=== PATIENT | male | born 1955 | race Caucasian/White ===

== ENCOUNTER 2018-09-11 18:25 | Inpatient (IN) | payer OTHER ==
[~2018-09-11] VITALS: Ht 185.4 cm; Wt 137.6 kg
[~2018-09-11 18:25] MED LIST: AMLO5TAB7 PO; ASPI-630 PO; CLOP75TA PO; DOXA1TAB2 PO; FISH1CAP PO; HYDR25TA9 PO; ISOS30TA4 PO; LANS15CA78 PO; LEVO5TAB2 PO; METO50TA6 PO; SIMV20TA3 PO
[2018-09-11 19:10] LABS: BASO # 0.1 x10^3/uL (0.0-0.2); BASO % 1 % (0-3); EOS # 0.2 x10^3/uL (0.0-0.7); EOS % 3 % (0-3); HEMATOCRIT 41.8 % (39.0-53.0); LYMPH % 23 % (24-48); MEAN CORPUSCULAR HEMOGLOBIN 29 pg (25-35); MEAN CORPUSCULAR HGB CONC 34 g/dL (31-37); MEAN CORPUSCULAR VOLUME 88 fL (79-100); MONO # 0.6 x10^3/uL (0.0-1.1); MONO % 7 % (0-9); NEUT # 5.9 x10^3uL (1.8-7.7); NEUT % 67 % (31-73); PLATELET COUNT 247 x10^3/uL (140-400); RED BLOOD COUNT 4.78 x10^6/uL (4.30-5.70); RED CELL DISTRIBUTION WIDTH 15.8 % (11.5-14.5); WHITE BLOOD COUNT 8.9 x10^3/uL (4.0-11.0)
[2018-09-11 19:24] LABS: PROTHROMBIN TIME PATIENT 12.8 SEC (11.7-14.0)
--- NOTE | 2018-09-11 19:28 | EKG ---
[facility] [address] [place] [address] Test Date: 2018-09-11 Test Time: 19:17:05 Pat Name: EBENEZER JOHNSON Department: Room: Gender: M Conservation Specialist: : 1955 Requested By: MENDEZ ZAMORA Order Number: [id number] Reading MD: Stef Blank MD Measurements Intervals [place] Rate: 73 P: 51 ID: 160 QRS: 3 QRSD: 88 T: 52 QT: 410 QTc: 456 Interpretive Statements SINUS RHYTHM Electronically Signed On 09-13-2018 10:27:18 TAP GRINDER by Stef Blank MD
[2018-09-11 19:32] LABS: CALCIUM 8.3 mg/dL (8.5-10.1); CREATININE 1.5 mg/dL (0.7-1.3); GFR 47.4; POTASSIUM 3.7 mmol/L (3.5-5.1)
[2018-09-11 19:38] LABS: ALBUMIN 3.5 g/dL (3.4-5.0); DIRECT BILIRUBIN 0.1 mg/dL (0.0-0.2); MAGNESIUM 1.7 mg/dL (1.8-2.4); TOTAL BILIRUBIN 0.3 mg/dL (0.2-1.0)
[2018-09-11 19:55] LABS: BILIRUBIN,URINE NEGATIVE (NEG); CLARITY,URINE CLEAR; COLOR,URINE YELLOW; NITRITE,URINE NEGATIVE (NEG); PH,URINE 6.5; PROTEIN,URINE NEGATIVE (NEG-TRACE); UROBILINOGEN,URINE 0.2 mg/dL (0.2 mg/dL)
[2018-09-11 20:10] LABS: BACTERIA,URINE 0 /HPF (0-FEW); WBC,URINE 0 /HPF (0-4)
--- NOTE | 2018-09-11 20:36 | RAD ---
CT Head without contrast 09/11/2018 Clinical Indication: Slurred speech Comparison: None Technique: Multiple CT images of the head were obtained without contrast. *One or more of the following individualized dose reduction techniques were utilized for this examination: 1. Automated exposure control. 2. Adjustment of the mA and/or kV according to patient size. 3. Use of iterative reconstruction technique. Findings: Ventricles and subarachnoid spaces are normal in size and configuration for age. No acute intracranial hemorrhage or extra-axial fluid collection. The marin-white matter interfaces are maintained. No midline shift. The basal cisterns are patent. Mild ethmoid and maxillary sinus with dorsal thickening. Soft tissue density in the left external auditory canal. Impression: 1. No acute intracranial hemorrhage. 2. Soft tissue density in the left external auditory canal, may be cerumen. Electronically signed by: Wander Aaron MD (09/11/2018 8:32 PM) [facility]
[2018-09-11] MEDS ORDERED: ONDANSETRON PF 4 MG/2 ML VIAL. IV PRN (21:15)
--- NOTE | 2018-09-11 21:15 | PHYS DOC ---
Past Medical History Past Medical History: Hypertension, Kidney Stone, Other Additional Past Medical Histor: ARTERIAL BLOOD CLOT RIGHT LEG Past Surgical History: Angioplasty, Cholecystectomy, Other Additional Past Surgical Histo: WITH STENT PLACEMENT, KIDNEY STONE REMOVAL Alcohol Use: None Drug Use: None Adult General Chief Complaint Chief Complaint: NEURO SYMPTOMS/DEFICITS HPI HPI Patient is a 63 year old male who presents with slurred speech and difficulty getting words out. This started approximately 10:30 this morning while he was speaking in front of shirt should. thought that it his left side of the mouth was going downwards and that he was speaking more with a lisp, just not clear. At that time she noted normal velocity in the appropriate words. This seems to have improved for a little bit then later on during the day had difficulty getting the words out, seeking for words in choosing different words than he ordinarily would but still appropriate ones. Says he still feels like he is having difficulty with the clarity of his speech. Denies any headaches or difficulties seeing. Denies any weakness or numbness in his arms or legs. No nausea or vomiting. Patient reports that she forgot to take his blood pressure medicines along with his other medicines today.[] Review of Systems Review of Systems Constitutional: Denies fever or chills [] Eyes: Denies change in visual acuity, redness, or eye pain [] HENT: Denies nasal congestion or sore throat [] Respiratory: Denies cough or shortness of breath [] Cardiovascular: No chest pain or palpitations[] GI: Denies abdominal pain, nausea, vomiting, bloody stools or diarrhea [] : Denies dysuria or hematuria [] Musculoskeletal: Denies back pain or joint pain [] Integument: Denies rash or skin lesions [] Neurologic: Denies headache, focal weakness or sensory changes not documented in the history of present illness [] Endocrine: Denies polyuria or polydipsia [] All other systems were reviewed and found to be within normal limits, except as documented in this note. Allergies Allergies Allergies Coded Allergies Type Severity Reaction Last Updated Verified Cinnamon Allergy Unknown 05/21/14 Yes Shackelford And Derivatives Allergy Unknown 05/21/14 Yes chocolate flavor Allergy Unknown 05/21/14 Yes milk Allergy Unknown 05/21/14 Yes Sulfa (Sulfonamide Antibiotics) Adverse Reaction Unknown Nausea and Vomiting Yes lisinopril Adverse Reaction Unknown Swelling 07/27/14 Yes Uncoded Allergies Type Severity Reaction Last Updated Verified CAT HAIR Allergy Unknown 05/21/14 MOLD Allergy Unknown 05/21/14 Physical Exam Physical Exam Constitutional: Well developed, well nourished, no acute distress, non-toxic appearance. [] HENT: Normocephalic, atraumatic, bilateral external ears normal, oropharynx moist, no oral exudates, nose normal. [] Eyes: PERRLA, EOMI, conjunctiva normal, no discharge. [] Neck: Normal range of motion, no tenderness, supple, no stridor. [] Cardiovascular:Heart rate regular rhythm, no murmur [] Lungs & Thorax: Bilateral breath sounds clear to auscultation [] Abdomen: Bowel sounds normal, soft, no tenderness, no masses, no pulsatile masses. [] Skin: Warm, dry, no erythema, no rash. [] Back: No tenderness, no CVA tenderness. [] Extremities: No tenderness, no cyanosis, no clubbing, ROM intact, no edema. [] Neurologic: Alert and oriented X 3, cranial nerve VII on the right side seems to be weak, patient has normal smile but it is losing air with puffed out cheeks on the right side. NIH of 1 for this finding. Normal sensory function, no focal deficits noted. [] Psychologic: Affect normal, judgement normal, mood normal. [] Current Patient Data Vital Signs Vital Signs Date Time Temp Pulse Resp B/P (MAP) Pulse Ox O2 Delivery O2 Flow Rate FiO2 09/11/18 19:30 73 16 97 09/11/18 18:40 97.7 212/91 (131) Room Air 97.7 Lab Values Laboratory Tests Test 09/11/18 18:44 09/11/18 18:55 09/11/18 19:45 Glucose (Fingerstick) 90 mg/dL (70-99) White Blood Count 8.9 x10^3/uL (4.0-11.0) Red Blood Count 4.78 x10^6/uL (4.30-5.70) Hemoglobin 14.0 g/dL (13.0-17.5) Hematocrit 41.8 % (39.0-53.0) Mean Corpuscular Volume 88 fL (79-100) Mean Corpuscular Hemoglobin 29 pg (25-35) Mean Corpuscular Hemoglobin Concent 34 g/dL (31-37) Red Cell Distribution Width 15.8 % (11.5-14.5) H Platelet Count 247 x10^3/uL (140-400) Neutrophils (%) (Auto) 67 % (31-73) Lymphocytes (%) (Auto) 23 % (24-48) L Monocytes (%) (Auto) 7 % (0-9) Eosinophils (%) (Auto) 3 % (0-3) Basophils (%) (Auto) 1 % (0-3) Neutrophils # (Auto) 5.9 x10^3uL (1.8-7.7) Lymphocytes # (Auto) 2.0 x10^3/uL (1.0-4.8) Monocytes # (Auto) 0.6 x10^3/uL (0.0-1.1) Eosinophils # (Auto) 0.2 x10^3/uL (0.0-0.7) Basophils # (Auto) 0.1 x10^3/uL (0.0-0.2) Prothrombin Time 12.8 SEC (11.7-14.0) Prothrombin Time INR 1.0 (0.8-1.1) Sodium Level 143 mmol/L (136-145) Potassium Level 3.7 mmol/L (3.5-5.1) Chloride Level 106 mmol/L (98-107) Carbon Dioxide Level 26 mmol/L (21-32) Anion Gap 11 (6-14) Blood Urea Nitrogen 16 mg/dL (8-26) Creatinine 1.5 mg/dL (0.7-1.3) H Estimated GFR (Cockcroft-Gault) 47.4 BUN/Creatinine Ratio 11 (6-20) Glucose Level 107 mg/dL (70-99) H Calcium Level 8.3 mg/dL (8.5-10.1) L Magnesium Level 1.7 mg/dL (1.8-2.4) L Total Bilirubin 0.3 mg/dL (0.2-1.0) Direct Bilirubin 0.1 mg/dL (0.0-0.2) Aspartate Amino Transferase (AST) 11 U/L (15-37) L Alanine Aminotransferase (ALT) 24 U/L (16-63) Alkaline Phosphatase 90 U/L (46-116) Ammonia 22 mcmol/L (11-34) Creatine Kinase 104 U/L (39-308) Troponin I Quantitative < 0.017 ng/mL (0.000-0.055) OD-Lyd-I-Type Natriuretic Peptide 229 pg/mL (0-124) H Total Protein 7.0 g/dL (6.4-8.2) Albumin 3.5 g/dL (3.4-5.0) Albumin/Globulin Ratio 1.0 (1.0-1.7) Urine Collection Type Unknown Urine Color Yellow Urine Clarity Clear Urine pH 6.5 Urine Specific [place] 1.015 Urine Protein Negative mg/dL (NEG-TRACE) Urine Glucose (UA) Negative mg/dL (NEG) Urine Ketones (Stick) Negative mg/dL (NEG) Urine Blood Small (NEG) Urine Nitrite Negative (NEG) Urine Bilirubin Negative (NEG) Urine Urobilinogen Dipstick 0.2 mg/dL (0.2 mg/dL) Urine Leukocyte Esterase Negative (NEG) Urine RBC 11-20 /HPF (0-2) Urine WBC 0 /HPF (0-4) Urine Bacteria 0 /HPF (0-FEW) Urine Mucus Slight /LPF Laboratory Tests 09/11/18 18:55 Laboratory Tests 09/11/18 18:55 EKG EKG Initial EKG was read by the computer as atrial flutter however this seemed to be regular in is not fenced of that so repeat EKG was obtained that showed normal sinus rhythm and no ST elevations and no EKGs available prior to today. The QRS axis was normal, QTc was 456 ms[] Radiology/Procedures Radiology/Procedures CT scan of the head shows no acute features Chest x-ray showed no acute features[] Course & Med Decision Making Course & Med Decision Making Pertinent Labs and Imaging studies reviewed. (See chart for details) Medical decision making: There does not appear to be a hemorrhagic stroke, nor significant stroke. Given history of previous DVT, patient already on clopidogrel, concern for small clots affecting different areas of the brain also exists given the left-sided symptoms observed by patient's versus right-sided symptoms observed by me. This also may be a blood pressure issue given that patient's blood pressure was in the 200s when he arrived due to poor compliance with his home medication. Consultation was made with his latex fashions designer who is happy to consult for cardiac issues, however patient having a primary care physician that has subsequently retired, patient is being admitted to the hospitalist service. ED course: Patient arrived, was placed in bed, in tolerate exam well. Patient was transported to and from [place] with any complications. Patient did take his home medication which improved his blood pressure from the 210s to 160s systolic. No significant change in his NIH stroke scale during his emergency department stay. Findings were discussed with patient and family. All questions were answered. Patient was admitted in improved condition.[] Dragon Disclaimer Dragon Disclaimer This electronic medical record was generated, in whole or in part, using a voice recognition dictation system. Departure Departure Impression: Primary Impression: Stroke Additional Impression: Hypertension Disposition: ADMITTED INPATIENT Admitting Physician: Xie. Rivas Condition: STABLE Referrals: NO PCP (PCP) Problem Qualifiers Primary Impression: Stroke CVA mechanism: unspecified Qualified Codes: I63.9 - Cerebral infarction, unspecified Additional Impression: Hypertension Hypertension type: unspecified Qualified Codes: I10 - Essential (primary) hypertension MENDEZ ZAMORA DO Sep 11, 2018 21:15
[2018-09-11] MEDS ORDERED: ASPIRIN CHEWABLE 81 MG TABLET. PO ONE (21:30)
[2018-09-11] MEDS ORDERED: GUAI12003 PO (22:51)
[2018-09-11] MEDS ORDERED: LOSA50TA7 PO (22:51)
[2018-09-11] MEDS ORDERED: [UNRECOGNIZED DRUG - OTHER] (22:51)
[2018-09-11 22:58] VITALS: BP 167/94
--- NOTE | 2018-09-11 23:50 | RAD ---
Examination: PORTABLE CHEST 1V History: slurred speech Comparison/Correlation: None Findings: Portable upright frontal view of the chest was obtained. Heart size is normal. No pneumothorax. Pulmonary hyperinflation suggested. Opacification of the left lower thorax is probably artifactual and due to overlying soft tissues. No definite effusion. Impression: No definite infiltrate. Consider lateral view for more definitive assessment lung bases. Pulmonary hyperinflation appears to present and may represent COPD. Electronically signed by: Sp Sales MD (09/11/2018 11:47 PM) [place] [id number]
[2018-09-12 03:00] VITALS: BP 132/58
[2018-09-12 07:00] VITALS: BP 163/76
--- NOTE | 2018-09-12 07:19 | EKG ---
[facility] [address] [place] [address] Test Date: 2018-09-11 Test Time: 18:48:27 Pat Name: EBENEZER JOHNSON Department: Room: 674 1 Gender: Male Internist Medical Doctor Md: : 1955 Requested By: MENDEZ ZAMORA Order Number: [id number] Reading MD: Stef Blank MD Measurements Intervals [place] Rate: 70 P: RI: QRS: 13 QRSD: 90 T: 164 QT: 494 QTc: 537 Interpretive Statements PROBABLE SR BASELINE ARTIFACT NON-SPECIFIC ST/T CHANGES Electronically Signed On 09-13-2018 10:27:03 [facility] by Stef Blank MD
[2018-09-12 08:21] LABS: BASO # 0.1 x10^3/uL (0.0-0.2); BASO % 1 % (0-3); EOS # 0.2 x10^3/uL (0.0-0.7); EOS % 4 % (0-3); HEMATOCRIT 41.9 % (39.0-53.0); LYMPH # 1.6 x10^3/uL (1.0-4.8); LYMPH % 26 % (24-48); MEAN CORPUSCULAR HEMOGLOBIN 29 pg (25-35); MEAN CORPUSCULAR HGB CONC 33 g/dL (31-37); MEAN CORPUSCULAR VOLUME 87 fL (79-100); MONO # 0.5 x10^3/uL (0.0-1.1); MONO % 8 % (0-9); NEUT # 3.8 x10^3uL (1.8-7.7); NEUT % 62 % (31-73); PLATELET COUNT 207 x10^3/uL (140-400); RED CELL DISTRIBUTION WIDTH 15.8 % (11.5-14.5); WHITE BLOOD COUNT 6.2 x10^3/uL (4.0-11.0)
[2018-09-12 08:26] LABS: CALCIUM 8.2 mg/dL (8.5-10.1); CREATININE 1.3 mg/dL (0.7-1.3); GFR 55.9; POTASSIUM 3.6 mmol/L (3.5-5.1)
[2018-09-12] MEDS ORDERED: ACETAMINOPHEN 500 MG TABLET PO PRN (10:15)
[2018-09-12 11:00] VITALS: BP 117/52
--- NOTE | 2018-09-12 11:26 | SSS ---
ADMIT DATE: 09/12/2018 CHIEF COMPLAINT: Right facial droop and drooling. 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 Basically, he presented with right facial droop, his forehead is not wrinkling and his eyes are a little droopy. He has been drooling. Clinically, he seems to have a Ch's palsy, although we are not sure; he could have had a stroke as well. This has been occurring since Wednesday when he realized he could not whistle. He tried taking some home meds, but that did not work. He rates it a 7 out of 10. I have discussed the case with the ER physician. We are going to be admitting the patient. We are going to be consulting Neurology to make sure he did not have a true stroke, but I suspect this is probably a Ch's palsy. PAST MEDICAL HISTORY: Hypertension, kidney stones, DVT, cholecystectomy and cardiac stents. ALLERGIES: CITRUS, SULFA, CAT DANDER, CHOCOLATE, CINNAMON, LISINOPRIL, MILK AND MOLD. FAMILY HISTORY: Hypertension. SOCIAL HISTORY: He is . He does not drink, smoke or take drugs. 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 MEDICATIONS: Medications were reviewed, please refer to the MRAD. He is on 14 home medications, including Plavix, simvastatin, isosorbide, doxazosin, metoprolol, amlodipine, losartan, aspirin, hydrochlorothiazide, guaifenesin, Prevacid and fish oil. REVIEW OF SYSTEMS: GENERAL: No history of weight change, weakness or fevers. SKIN: No bruising, hair changes or rashes. EYES: No blurred, double or loss of vision. NOSE AND THROAT: No history of nosebleeds, hoarseness or sore throat. HEART: No history of palpitations, chest pain or shortness of breath on exertion. LUNGS: Denies cough, hemoptysis, wheezing or shortness of breath. GASTROINTESTINAL: Denies changes in appetite, nausea, vomiting, diarrhea or constipation. GENITOURINARY: No history of frequency, urgency, hesitancy or nocturia. NEUROLOGIC: Denies history of numbness, tingling, tremor or weakness. He complains of right facial droop. PSYCHIATRIC: No history of panic, anxiety or depression. ENDOCRINE: No history of heat or cold intolerance, polyuria or polydipsia. EXTREMITIES: Denies muscle weakness, joint pain, pain on walking or stiffness. PHYSICAL EXAMINATION: VITAL SIGNS: Temperature afebrile, pulse 82, respirations 18 and blood pressure 160/74. GENERAL: He is alert, cooperative. His and daughter are present and are good support for him. HEART: Normal S1, S2. LUNGS: Clear to auscultation. ABDOMEN: Soft. Positive bowel sounds, a little obese. EXTREMITIES: Trace edema. SKIN: No rash. ENDOCRINE: No thyromegaly. LYMPHATICS: No cervical nodes. HEMATOPOIETIC: No bruising. NEUROLOGIC: He is moving all extremities. He does have a right facial droop. The right forehead does not wrinkle well. LABORATORY DATA: Hematology is normal. Electrolytes were normal. CT of the head is negative. ASSESSMENT AND PLAN: Stroke versus Ch's palsy. The patient has been admitted. We are consulting Neurology, suspect he will get an MRI. For now, we are doing daily aspirin, speech therapy, home meds, PT, OT and frequent labs. WINSOME BARRIGA DO DR: JULIAN/shirley JOB#: [id number] / [id number]
[2018-09-12] MEDS ORDERED: ACETAMINOPHEN 325 MG TABLET. PO PRN (11:30)
[2018-09-12] MEDS ORDERED: ACETAMINOPHEN 650 MG SUPP.RECT. PR PRN (11:30)
--- NOTE | 2018-09-12 11:36 | PDOC2 ---
NEUROLOGY CONSULT Date of Admission Date of Admission DATE: 09/12/18 TIME: 11:29 Reason for Consult Reason for Consult: Possible stroke Referring Physician Referring Physician: Dr. Gabriel Source Source: Caregiver, Chart review, Patient History of Present Illness History of Present Illness The patient is a 63-year-old right-handed male who 2 nights ago noted the onset of dysarthria. He also noted that he could not whistle for his dog. The next morning the symptoms continued and he finally went to the emergency department last night. He has had some achy pain behind the right ear. There is been no change in hearing or taste. He says that his right eye is watering a lot. He denies any previous such stroke symptoms. There is no history of migraine, seizure, or head injury. 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 Current Medications Current Medications Current Medications Aspirin (Children'S Aspirin) 324 mg 1X ONCE PO Last administered on at 21:31; Admin Dose 324 MG; Start 09/11/18 at 21:30; Stop 09/11/18 at 21:31 ; Status DC Ondansetron HCl (Zofran) 4 mg PRN Q8HRS PRN IV NAUSEA/VOMITING 1ST CHOICE; Start 09/11/18 at 21:15; Stop 09/12/18 at 21:14 Influenza Virus Vaccine (Afluria Trivalent [id number] Syringe) 0.5 ml ONCE ONCE VAX IM ; Start 09/12/18 at 09:00; Stop 09/12/18 at 09:01; Status DC Acetaminophen (Tylenol) 1,000 mg PRN Q6HRS PRN PO HEADACHE Last administered on 09/12/18at 10:26; Admin Dose 1,000 MG; Start 09/12/18 at 10:15 Active Scripts Active Reported Mucinex (Guaifenesin) 1,200 Mg Tbmp.12hr 1,200 Mg PO PRN PRN [mon] Losartan Potassium 50 Mg Tablet 50 Mg PO DAILY Isosorbide Mononitrate Er (Isosorbide Mononitrate) 30 Mg Tab.er.24h 30 Mg PO DAILY Levocetirizine Dihydrochloride 5 Mg Tablet 5 Mg PO DAILY Simvastatin 20 Mg Tablet 20 Mg PO HS Clopidogrel (Clopidogrel Bisulfate) 75 Mg Tablet 75 Mg PO DAILY Amlodipine Besylate 5 Mg Tablet 5 Mg PO DAILY Doxazosin Mesylate 1 Mg Tablet 1 Mg PO DAILY Metoprolol Tartrate 50 Mg Tablet 50 Mg PO BID Hydrochlorothiazide Tablet (Hydrochlorothiazide) 25 Mg Tablet 25 Mg PO DAILY Aspirin 81 Mg Tab.chew 81 Mg PO DAILY Fish Oil 1,200 Mg Fish Oil (Fish Oil/Dha/Epa) 1 Each Capsule 1 Each PO DAILY Prevacid (Lansoprazole) 15 Mg Capsule.dr 15 Mg PO DAILY Allergies Allergies: Coded Allergies: [place] And Derivatives (Verified Allergy, Intermediate, 09/11/18) cat dander (Verified Allergy, Intermediate, 09/11/18) chocolate flavor (Verified Allergy, Intermediate, 09/11/18) cinnamon (Verified Allergy, Intermediate, 09/11/18) milk (Verified Allergy, Intermediate, 09/11/18) mold (Verified Allergy, Intermediate, 09/11/18) lisinopril (Verified Adverse Reaction, Severe, Swelling, 09/11/18) Sulfa (Sulfonamide Antibiotics) (Verified Adverse Reaction, Intermediate, Nausea and Vomiting, 09/11/18) ROS Review of System Patient denies fevers, chills, weight loss, dyspnea, angina, abdominal pain, change in bowels, or dysuria. 14-point review of systems is negative. Physical Exam Physical Examination General: Well-developed, well-nourished, white male, in no acute distress HEENT: Normocephalic andatraumatic. Tympanic membranes clear.Temporal arteries pulsatile and nontender. Neck: Supple without bruit, no meningismus Musculoskeletal: Stability:see neurologic. Gait exam:see neurologic. Tone:see neurologic. Strength:see neurologic. Neurological: Mental Status:intact, orientation, memory, attention span/concentration, language, fund of knowledge normal. Cranial Nerves:Pupils equal and reactive to light, extraocular movements areintact, visual cast are full to confrontation. Facial sensation is normal. There is right lower facial weakness , no involvement of orbicularis oculi or frontalis. Vestibulo-ocular reflex is intact. Palate elvates and tongue protrudes in midline. All other cranial related problems are negative except as mentioned before.Reflexes:2+ and symmetric with flexor plantar responses. Motor:5/5 strength with normal tone and bulk. Coordination:Finger-nose finger and opjq-hj-oizr testing are normal. Rapid alternating movements and fine finger movements are intact. Gait:Normal, including tandem. Sensory:Normal pinprick, vibration, light touch, proprioception. Vitals VITALS Vital Signs Date Time Temp Pulse Resp B/P (MAP) Pulse Ox O2 Delivery O2 Flow Rate FiO2 09/12/18 07:00 97.9 60 18 163/76 (105) 99 Room Air 97.9 Labs Labs Laboratory Tests Test 09/11/18 18:44 09/11/18 18:55 09/11/18 19:45 09/12/18 07:50 Glucose (Fingerstick) 90 mg/dL (70-99) White Blood Count 8.9 x10^3/uL (4.0-11.0) 6.2 x10^3/uL (4.0-11.0) Red Blood Count 4.78 x10^6/uL (4.30-5.70) 4.80 x10^6/uL (4.30-5.70) Hemoglobin 14.0 g/dL (13.0-17.5) 14.0 g/dL (13.0-17.5) Hematocrit 41.8 % (39.0-53.0) 41.9 % (39.0-53.0) Mean Corpuscular Volume 88 fL (79-100) 87 fL (79-100) Mean Corpuscular Hemoglobin 29 pg (25-35) 29 pg (25-35) Mean Corpuscular Hemoglobin Concent 34 g/dL (31-37) 33 g/dL (31-37) Red Cell Distribution Width 15.8 % (11.5-14.5) 15.8 % (11.5-14.5) Platelet Count 247 x10^3/uL (140-400) 207 x10^3/uL (140-400) Neutrophils (%) (Auto) 67 % (31-73) 62 % (31-73) Lymphocytes (%) (Auto) 23 % (24-48) 26 % (24-48) Monocytes (%) (Auto) 7 % (0-9) 8 % (0-9) Eosinophils (%) (Auto) 3 % (0-3) 4 % (0-3) Basophils (%) (Auto) 1 % (0-3) 1 % (0-3) Neutrophils # (Auto) 5.9 x10^3uL (1.8-7.7) 3.8 x10^3uL (1.8-7.7) Lymphocytes # (Auto) 2.0 x10^3/uL (1.0-4.8) 1.6 x10^3/uL (1.0-4.8) Monocytes # (Auto) 0.6 x10^3/uL (0.0-1.1) 0.5 x10^3/uL (0.0-1.1) Eosinophils # (Auto) 0.2 x10^3/uL (0.0-0.7) 0.2 x10^3/uL (0.0-0.7) Basophils # (Auto) 0.1 x10^3/uL (0.0-0.2) 0.1 x10^3/uL (0.0-0.2) Prothrombin Time 12.8 SEC (11.7-14.0) Prothromb Time International Ratio 1.0 (0.8-1.1) Sodium Level 143 mmol/L (136-145) 142 mmol/L (136-145) Potassium Level 3.7 mmol/L (3.5-5.1) 3.6 mmol/L (3.5-5.1) Chloride Level 106 mmol/L (98-107) 105 mmol/L (98-107) Carbon Dioxide Level 26 mmol/L (21-32) 31 mmol/L (21-32) Anion Gap 11 (6-14) 6 (6-14) Blood Urea Nitrogen 16 mg/dL (8-26) 13 mg/dL (8-26) Creatinine 1.5 mg/dL (0.7-1.3) 1.3 mg/dL (0.7-1.3) Estimated GFR (Cockcroft-Gault) 47.4 55.9 BUN/Creatinine Ratio 11 (6-20) Glucose Level 107 mg/dL (70-99) 100 mg/dL (70-99) Calcium Level 8.3 mg/dL (8.5-10.1) 8.2 mg/dL (8.5-10.1) Magnesium Level 1.7 mg/dL (1.8-2.4) Total Bilirubin 0.3 mg/dL (0.2-1.0) Direct Bilirubin 0.1 mg/dL (0.0-0.2) Aspartate Amino Transf (AST/SGOT) 11 U/L (15-37) Alanine Aminotransferase (ALT/SGPT) 24 U/L (16-63) Alkaline Phosphatase 90 U/L (46-116) Ammonia 22 mcmol/L (11-34) Creatine Kinase 104 U/L (39-308) Troponin I Quantitative < 0.017 ng/mL (0.000-0.055) QG-Jyl-Y-Type Natriuretic Peptide 229 pg/mL (0-124) Total Protein 7.0 g/dL (6.4-8.2) Albumin 3.5 g/dL (3.4-5.0) Albumin/Globulin Ratio 1.0 (1.0-1.7) Urine Collection Type Unknown Urine Color Yellow Urine Clarity Clear Urine pH 6.5 Urine Specific [place] 1.015 Urine Protein Negative mg/dL (NEG-TRACE) Urine Glucose (UA) Negative mg/dL (NEG) Urine Ketones (Stick) Negative mg/dL (NEG) Urine Blood Small (NEG) Urine Nitrite Negative (NEG) Urine Bilirubin Negative (NEG) Urine Urobilinogen Dipstick 0.2 mg/dL (0.2 mg/dL) Urine Leukocyte Esterase Negative (NEG) Urine RBC 11-20 /HPF (0-2) Urine WBC 0 /HPF (0-4) Urine Bacteria 0 /HPF (0-FEW) Urine Mucus Slight /LPF Laboratory Tests Test 09/11/18 18:44 09/11/18 18:55 09/11/18 19:45 09/12/18 07:50 Glucose (Fingerstick) 90 mg/dL (70-99) White Blood Count 8.9 x10^3/uL (4.0-11.0) 6.2 x10^3/uL (4.0-11.0) Red Blood Count 4.78 x10^6/uL (4.30-5.70) 4.80 x10^6/uL (4.30-5.70) Hemoglobin 14.0 g/dL (13.0-17.5) 14.0 g/dL (13.0-17.5) Hematocrit 41.8 % (39.0-53.0) 41.9 % (39.0-53.0) Mean Corpuscular Volume 88 fL (79-100) 87 fL (79-100) Mean Corpuscular Hemoglobin 29 pg (25-35) 29 pg (25-35) Mean Corpuscular Hemoglobin Concent 34 g/dL (31-37) 33 g/dL (31-37) Red Cell Distribution Width 15.8 % (11.5-14.5) 15.8 % (11.5-14.5) Platelet Count 247 x10^3/uL (140-400) 207 x10^3/uL (140-400) Neutrophils (%) (Auto) 67 % (31-73) 62 % (31-73) Lymphocytes (%) (Auto) 23 % (24-48) 26 % (24-48) Monocytes (%) (Auto) 7 % (0-9) 8 % (0-9) Eosinophils (%) (Auto) 3 % (0-3) 4 % (0-3) Basophils (%) (Auto) 1 % (0-3) 1 % (0-3) Neutrophils # (Auto) 5.9 x10^3uL (1.8-7.7) 3.8 x10^3uL (1.8-7.7) Lymphocytes # (Auto) 2.0 x10^3/uL (1.0-4.8) 1.6 x10^3/uL (1.0-4.8) Monocytes # (Auto) 0.6 x10^3/uL (0.0-1.1) 0.5 x10^3/uL (0.0-1.1) Eosinophils # (Auto) 0.2 x10^3/uL (0.0-0.7) 0.2 x10^3/uL (0.0-0.7) Basophils # (Auto) 0.1 x10^3/uL (0.0-0.2) 0.1 x10^3/uL (0.0-0.2) Prothrombin Time 12.8 SEC (11.7-14.0) Prothromb Time International Ratio 1.0 (0.8-1.1) Sodium Level 143 mmol/L (136-145) 142 mmol/L (136-145) Potassium Level 3.7 mmol/L (3.5-5.1) 3.6 mmol/L (3.5-5.1) Chloride Level 106 mmol/L (98-107) 105 mmol/L (98-107) Carbon Dioxide Level 26 mmol/L (21-32) 31 mmol/L (21-32) Anion Gap 11 (6-14) 6 (6-14) Blood Urea Nitrogen 16 mg/dL (8-26) 13 mg/dL (8-26) Creatinine 1.5 mg/dL (0.7-1.3) 1.3 mg/dL (0.7-1.3) Estimated GFR (Cockcroft-Gault) 47.4 55.9 BUN/Creatinine Ratio 11 (6-20) Glucose Level 107 mg/dL (70-99) 100 mg/dL (70-99) Calcium Level 8.3 mg/dL (8.5-10.1) 8.2 mg/dL (8.5-10.1) Magnesium Level 1.7 mg/dL (1.8-2.4) Total Bilirubin 0.3 mg/dL (0.2-1.0) Direct Bilirubin 0.1 mg/dL (0.0-0.2) Aspartate Amino Transf (AST/SGOT) 11 U/L (15-37) Alanine Aminotransferase (ALT/SGPT) 24 U/L (16-63) Alkaline Phosphatase 90 U/L (46-116) Ammonia 22 mcmol/L (11-34) Creatine Kinase 104 U/L (39-308) Troponin I Quantitative < 0.017 ng/mL (0.000-0.055) XY-Set-Q-Type Natriuretic Peptide 229 pg/mL (0-124) Total Protein 7.0 g/dL (6.4-8.2) Albumin 3.5 g/dL (3.4-5.0) Albumin/Globulin Ratio 1.0 (1.0-1.7) Urine Collection Type Unknown Urine Color Yellow Urine Clarity Clear Urine pH 6.5 Urine Specific [place] 1.015 Urine Protein Negative mg/dL (NEG-TRACE) Urine Glucose (UA) Negative mg/dL (NEG) Urine Ketones (Stick) Negative mg/dL (NEG) Urine Blood Small (NEG) Urine Nitrite Negative (NEG) Urine Bilirubin Negative (NEG) Urine Urobilinogen Dipstick 0.2 mg/dL (0.2 mg/dL) Urine Leukocyte Esterase Negative (NEG) Urine RBC 11-20 /HPF (0-2) Urine WBC 0 /HPF (0-4) Urine Bacteria 0 /HPF (0-FEW) Urine Mucus Slight /LPF Images Images CT head: Ventricles and subarachnoid spaces are normal in size and configuration for age. No acute intracranial hemorrhage or extra-axial fluid collection. The marin-white matter interfaces are maintained. No midline shift. The basal cisterns are patent. Mild ethmoid and maxillary sinus with dorsal thickening. Soft tissue density in the left external auditory canal. Impression: 1. No acute intracranial hemorrhage. 2. Soft tissue density in the left external auditory canal, may be cerumen. Assessment/Plan Assessment/Plan Impression: The facial weakness only involves the lower part of the face, which is unusual with Ch's palsy. On the other hand, he has fullness behind the ipsilateral ear and no other focal findings., I'm not sure if he has had a small stroke versus bells palsy. Note that he is already on aspirin, Plavix, and a statin. Recommendations: MRI of the brain Echocardiogram Carotid Doppler studies Rehabilitation screening Continue the aspirin, Plavix, and statin Course of prednisone, see orders, discussed side effects. Aim for discharge later today if tests are negative. Follow-up with me in 3-6 weeks unless the facial symptoms are cleared, and then there would be no need for neurological follow-up. Thank you for letting me help with the patient's care. GEO OKEEFE MD Sep 12, 2018 11:36
[2018-09-12] MEDS ORDERED: ASPIRIN CHEWABLE 81 MG TABLET. PO SCH ×2 (11:45→13:00)
[2018-09-12] MEDS ORDERED: CLOPIDOGREL BISULFATE 75 MG TABLET PO SCH ×2 (11:45→13:00)
[2018-09-12 12:07] LABS: CHOLESTEROL/HDL RATIO 4.5
[2018-09-12] MEDS ORDERED: amLODIPine BESYLATE 5 MG TABLET PO SCH (13:00)
[2018-09-12] MEDS ORDERED: METOPROLOL TART IMMED RELEASE 50 MG TABLET. PO SCH (13:00)
[2018-09-12] MEDS ORDERED: LOSARTAN POTASSIUM 50 MG TABLET. PO SCH ×2 (13:00→21:00)
[2018-09-12] MEDS ORDERED: DOXAZOSIN MESYLATE 1 MG TABLET. PO SCH ×2 (13:00→21:00)
[2018-09-12] MEDS ORDERED: LANSOPRAZOLE 30 MG TAB.RAP.DR PO SCH (13:00)
[2018-09-12] MEDS ORDERED: predniSONE 20 MG TABLET PO ONE (13:00)
[2018-09-12] MEDS ORDERED: OMEGA-3 FATTY ACIDS/FISH OIL 1,000 MG CAPSULE. PO SCH (13:00)
[2018-09-12] MEDS ORDERED: hydroCHLOROthiazide 25 MG TABLET PO SCH (13:00)
[2018-09-12] MEDS ORDERED: ISOSORBIDE MONONITRATE ER 30 MG TAB.ER.24H PO SCH (13:00)
--- NOTE | 2018-09-12 13:39 | RAD ---
MRI Brain without contrast History: Right-sided facial weakness, slurred speech Technique: Multiplanar, multisequential noncontrast MR imaging was performed of the brain. Contrast: None Comparison: None Findings: There is mild motion. There is no evidence of recent infarct or cytotoxic edema. Ventricular size is within normal limits.There is no significant midline shift, intraaxial mass effect, or focal abnormal extra-axial fluid collection. There are couple of tiny foci of T2 and FLAIR hyperintense signal of the bifrontal deep white matter. There is no significant hemosiderin deposition of the brain parenchyma. There is preservation of the major intracranial flow-voids at the skull base. There is very mild thickening of the right mastoid air cells.The cerebellar tonsils are normal in location. There is no significant abnormality of the pineal gland or pituitary gland. There is mild to moderate right and mild left maxillary sinus mucosal thickening. There is negligible ethmoid air cell and right frontal sinus mucosal thickening. There is preserved marrow signal of the clivus. Impression: 1. There is no evidence of recent infarct or intracranial mass effect. There are a couple of foci of likely nonspecific gliosis of the bifrontal deep white matter. 2. There is paranasal sinus mucosal thickening as described. Electronically signed by: Stew Markham MD (09/12/2018 1:36 PM) [id number]
--- NOTE | 2018-09-12 13:42 | RAD ---
DOPPLER CAROTID BILAT Clinical Indication: RT FACIAL WEAKNESS. Procedure: Pulsed wave and color-flow duplex imaging was utilized to evaluate the extracranial carotid arteries. Comparison: None. Findings: RIGHT SIDE: Mild atherosclerotic plaque on marin-scale images. Distal CCA peak systolic velocity 46 cm/sec. ICA peak systolic velocity 90 cm/sec. The right ICA/CCA ratio is 2.0. Flow within the right vertebral artery and right ECA is directed antegrade. LEFT SIDE: Mild atherosclerotic plaque on marin-scale images. Distal CCA peak systolic velocity 39 cm/sec. ICA peak systolic velocity 73 cm/sec. The left ICA/CCA ratio is 1.9. Delayed that Flow within the left vertebral artery and left ECA is directed antegrade. Carotid legend: CCA = common carotid artery ICA = internal carotid artery ECA = external carotid artery IMPRESSION: 1. Mild bilateral atherosclerotic disease in the carotid arteries without hemodynamically significant stenosis. Electronically signed by: Reji Blue DO (09/12/2018 1:39 PM) [id number]
[2018-09-12 15:00] VITALS: BP 118/68
[2018-09-12] MEDS ORDERED: SIMVASTATIN 20 MG TABLET PO SCH (21:00)
[2018-09-13] MEDS ORDERED: predniSONE 10 MG TABLET PO ONE (09:00)
--- NOTE | 2018-09-13 10:44 | CARD ---
MR#: [id number] Date of Study: 09/12/2018 Ordering Physician: GEO OKEEFE, Referring Physician: TIFF BRAY Tech: Meera Negron RDCS APPROVED REPORT EXAM: Two-dimensional and M-mode echocardiogram with Doppler and color Doppler. Other Information Quality : Technically Limited Technically limited study due to body habitus. INDICATION CVA/TIA Echo Enhancing Agent Agent/Amount Used: Agitated Saline 16mL 2D DIMENSIONS RVDd2.9 (2.9-3.5cm)Left Atrium(2D)3.2 (1.6-4.0cm) IVSd1.7 (0.7-1.1cm)Aortic Root(2D)2.9 (2.0-3.7cm) LVDd4.0 (3.9-5.9cm)LVOT Diameter2.2 (1.8-2.4cm) PWd1.3 (0.7-1.1cm)LVDs3.0 (2.5-4.0cm) FS (%) 26.9 %SV37.9 ml LVEF(%)55.0 (>50%) Aortic Valve AoV Peak Willi.204.2cm/sAoV VTI46.7cm AO Peak GR.16.7mmHgLVOT Peak Willi.86.8cm/s AO Mean GR.10mmHgAVA (VMAX)1.66cm2 PIERCE (VTI)1.80cm2 Mitral Valve MV E Yepxulpd10.9cm/sMV DECEL [id number] MV A Hrzlmzcd50.9cm/sE/A Ratio1.2 LEFT VENTRICLE The left ventricle is normal size. There is mild concentric left ventricular hypertrophy. The left ve ntricular systolic function is normal and the ejection fraction is within normal range. The Ejection Fraction is 55-60%. There is grossly normal LV wall motion. Tissue Doppler imaging reveals moderate l eft ventricular diastolic dysfunction. RIGHT VENTRICLE The right ventricle is normal size. The right ventricular systolic function is normal. ATRIA The left atrium size is normal. The right atrium size is normal. Atrial septum not well visualized. N on-diagnostic saline injection study. AORTIC VALVE The aortic valve is not well visualized but appears sclerotic. Cannot rule out a bicuspid valve. Dopp ler and Color Flow revealed no significant aortic regurgitation. Visually the aortic valve appears mo derately stenotic. By doppler criteria there is mild stenosis. MITRAL VALVE The mitral valve is normal in structure and function. There is no evidence of mitral valve prolapse. There is no mitral valve stenosis. Doppler and Color Flow revealed no mitral valve regurgitation note d. TRICUSPID VALVE The tricuspid valve is normal in structure and function. Doppler and Color Flow revealed no tricuspid valve regurgitation noted. There is no tricuspid valve stenosis. PULMONIC VALVE The pulmonic valve is not well visualized. Doppler and Color Flow revealed no pulmonic valvular regur gitation. There is no pulmonic valvular stenosis. GREAT VESSELS The aortic root is normal in size. The ascending aorta is normal in size. The IVC is normal in size a nd collapses >50% with inspiration. PERICARDIAL EFFUSION There is no evidence of significant pericardial effusion. Critical Notification Critical Value: No <Conclusion> The left ventricular systolic function is normal and the ejection fraction is within normal range. Th e Ejection Fraction is 55-60%. There is grossly normal LV wall motion. Atrial septum not well visualized. Non-diagnostic saline injection study. Visually the aortic valve appears moderately stenotic. By doppler criteria there is mild stenosis. Technically difficult study - recommend SUNNY if clinically indicated. Signed by : Stef Blank, Electronically Approved : 09/13/2018 10:44:02
[2018-09-14] MEDS ORDERED: predniSONE 20 MG TABLET PO ONE (09:00)
[2018-09-15] MEDS ORDERED: predniSONE 10 MG TABLET PO ONE (09:00)
== END 2018-09-12 17:15 | disposition home or self-care (01) | DRG 74 ==
LOC: ER 18:25 → 6 SOUTH 20:47
PROVIDERS: ADMIT Internal Medicine; ATTEND Internal Medicine
DX: G51.0 Bell's palsy (principal); I10 Essential (primary) hypertension; I73.9 Peripheral vascular disease, unspecified; I25.10 Atherosclerotic heart disease of native coronary artery without angina pectoris; E78.5 Hyperlipidemia, unspecified; K21.9 Gastro-esophageal reflux disease without esophagitis; Z95.5 Presence of coronary angioplasty implant and graft; Z87.442 Personal history of urinary calculi; Z79.82 Long term (current) use of aspirin; Z88.2 Allergy status to sulfonamides; Z82.49 Family history of ischemic heart disease and other diseases of the circulatory system; Z88.8 Allergy status to other drugs, medicaments and biological substances; Z87.891 Personal history of nicotine dependence; Z90.49 Acquired absence of other specified parts of digestive tract; Z80.9 Family history of malignant neoplasm, unspecified; Z86.718 Personal history of other venous thrombosis and embolism
CPT/HCPCS: 99285; C8929; 36415; 70450; 70551; 71045; 80048; 80053; 80061; 80076; 81001; 82140; 82550; 82962; 83735; 83880; 84484; 85025; 85610; 93005; 93880; J7512; 92526